=== PATIENT | male | born 1955 | race Caucasian/White ===

== ENCOUNTER 2020-11-13 08:44 | Outpatient (CLI) | payer BC ==
[~2020-11-13] VITALS: Ht 182.9 cm; Wt 114.5 kg
[2020-11-13 08:22] VITALS: BP 141/84
[2020-11-13] MEDS ORDERED: EPINEPHrine INJECTION 1 MG/ML AMP IM PRN (09:00)
[2020-11-13] MEDS ORDERED: BAMLANIVIMAB (NON FORM) 700 MG in NS (IVPB) 100 ML IV ONE (09:00)
[2020-11-13] MEDS ORDERED: diphenhydrAMINE 50 MG/ML INJ (BENADRYL) IV PRN (09:00)
[2020-11-13 10:00] VITALS: BP 132/73
== END 2020-11-13 10:05 | disposition home or self-care (01) ==
LOC: INFUSION 08:44
PROVIDERS: ATTEND Nurse Practitioner Family
DX: Z23 Encounter for immunization (principal); U07.1 COVID-19

== ENCOUNTER → 2021-03-05 | Outpatient (CLI) | payer OTHER | LOC: CARD 08:08 | PROVIDERS: ATTEND Internal Medicine Cardiovascular Disease | DX: R06.00 Dyspnea, unspecified (principal) | CPT/HCPCS: 93306 ==

== ENCOUNTER → 2021-04-09 | Outpatient (CLI) | payer BC, OTHER ==
[~2021-04-09] VITALS: Ht 182 cm; Wt 109.0 kg
[~2021-04-09] MED LIST: REGADENOSON 0.4 MG/5 ML SYR (LEXISCAN) IV ONE
[2021-04-09] MEDS: CATHETER FLUSH 10 ML SYR IV PRN ×2 (07:38→08:54)
[2021-04-09 08:50] VITALS: BP 178/94
--- NOTE | 2021-04-09 17:25 | STRESS TEST ---
DATE OF SERVICE: 04/09/2021 RESTING AND POST REGADENOSON TECHNETIUM-99M TETROFOSMIN SPECT CT IMAGING PRIMARY PHYSICIAN: Dr. Ponce. CLINICAL DIAGNOSIS: Shortness of breath. Baseline images were carried out after injection of 10.43 mCi of technetium-99m Tetrofosmin. This was followed by 0.4 mg Regadenoson and 29.7 mCi of technetium-99m Tetrofosmin for stress imaging. The electrocardiogram showed sinus rhythm at baseline. It did not change significantly with the Regadenoson infusion. The patient tolerated the procedure well. Review of images at rest and following stress does not indicate any distinct perfusion defects consistent with significant myocardial ischemia or infarction. Some degree of diaphragmatic attenuation is seen both at rest and following Regadenoson infusion. Gated images show normal global left ventricular systolic function with normal regional wall motion, including the diaphragmatic wall of the left ventricle. Left ventricular ejection fraction is calculated to be 64%. Left ventricular end-diastolic volume is 81 mL. TID is absent (1.07). CONCLUSIONS: 1. No evidence of any significant myocardial ischemia or infarction on this study. 2. Normal regional wall motion. 3. Normal global left ventricular systolic function with a calculated ejection fraction of 64%. Job ID: [id number] DocumentID: [id number] Dictated Date: 04/09/2021 15:04:51 Butter Wrapper Date: 04/09/2021 17:24:51 Dictated By: FRANKIE PONCE MD, MA, FACP, FACC,
== END ==
LOC: CARD 08:00
PROVIDERS: ATTEND Internal Medicine Cardiovascular Disease
DX: R06.02 Shortness of breath (principal)
CPT/HCPCS: 78452; 93017; A9502

== ENCOUNTER 2022-11-03 05:28 | Outpatient (CLI) | payer MEDICARE, OTHER ==
[~2022-11-03] VITALS: Ht 182.8 cm; Wt 109.3 kg
[2022-11-09] MEDS ORDERED: HYDR25TA4 PO (09:40)
[2022-11-09] MEDS ORDERED: ATEN100T PO (09:40)
[2022-11-09] MEDS ORDERED: LANS15CA PO (09:40)
[2022-11-09] MEDS ORDERED: TMSL.4C PO (09:40)
[2022-11-09] MEDS ORDERED: LISI40TA9 PO (09:40)
== END 2022-11-09 09:44 | disposition home or self-care (01) ==
LOC: PREOP 05:28
PROVIDERS: ATTEND Surgery
DX: Z01.818 Encounter for other preprocedural examination (principal)

== ENCOUNTER 2022-11-10 10:43 | Day surgery (SDC) | payer MEDICARE, OTHER ==
[~2022-11-10] VITALS: Ht 182.8 cm; Wt 109.3 kg
[2022-11-10] VITALS (10 sets, daily range): BP systolic 128–173; BP diastolic 70–88
[~2022-11-10 10:43] MED LIST changes: +ATEN100T PO; +HYDR25TA4 PO; +LANS15CA PO; +LISI40TA9 PO; -REGADENOSON 0.4 MG/5 ML SYR (LEXISCAN) IV ONE; +TMSL.4C PO
[2022-11-10] MEDS ORDERED: ceFAZolin INJECTION 2,000 MG in NS (IVPB) 50 ML IV ONE (11:00)
[2022-11-10] MEDS: LACTATED RINGERS 1,000 ML IV PRN ×2 (11:20→12:33)
[2022-11-10] MEDS ORDERED: BUP/EPI 0.5% 1:200,000 (SENSORCAINE) 30 ML VIAL ONE (11:27)
[2022-11-10] MEDS ORDERED: MIDAZOLAM 2 MG/2 ML (VERSED) VIAL ONE (12:04)
[2022-11-10] MEDS ORDERED: BUP/EPI 0.5% 1:200,000 (SENSORCAINE) 30 ML VIAL IJ ONE (12:24)
[2022-11-10] MEDS ORDERED: fentaNYL INJ 100 MCG/2 ML AMP ONE (12:25)
--- NOTE | 2022-11-10 12:51 | Discharge Inst-Simple/Standard ---
Discharge Inst-Standard Patient Instructions/Follow Up Plan of Care/Instructions/FU: 2 weeks [place] Activity as Tolerated: No Discharge Diet: Regular Diet Other Inst to Patient Follow up Appt: Make appointment for 2 week. Instructions: No strenuous activity. May shower in 24 hours, no tub bath or soaking. Use incentive spirometer at home as directed. No Smoking Skin/Wound Care: You have special glue over your incision that will fall off on it's own. Symptoms to Report: Appetite Changes, Extremity Discoloration, Numbness/Tingling, Swelling Increased, Bleeding Excessive, Eyesight Changes, Pain Increased, Urine Color Change, Constipation(Persistent), Fever over 101 degree F, Pain/Pressure in ches t, Urinating Difficulty, Cough Up/Vomit Blood, Heart Beat Irreg/Pounding, Pain/Pressure in jaw, Vaginal Bleeding Increase, Cramps in feet or legs, Lightheadedness, Pain/Pressure in shoulder, Diarrhea(Persistent), Memory Changes Suddenly, Questions/Concerns, Weight gain consecutive days, Dizziness/Fainting, Nausea/Vomiting, Shortness of Breath, Weight gain over 2 pounds If questions or concerns contact your physician Or seek help at emergency department. DOROTHEA VILLARREAL DO Nov 10, 2022 12:51
[2022-11-10] MEDS ORDERED: proPOfol 200 MG/20 ML (DIPRIVAN) VIAL IV ONE (12:52)
[2022-11-10] MEDS ORDERED: LIDOCAINE PF 2% 5 ML (XYLOCAINE) VIAL ONE (12:52)
[2022-11-10] MEDS ORDERED: SEVOFLURANE (ULTANE) 15 ML INHAL SOLN ONE (12:52)
[2022-11-10] MEDS ORDERED: ONDANSETRON 4 MG/2 ML (SDV) Z0FRAN ONE (12:53)
--- NOTE | 2022-11-10 12:55 | Progress Note-Post Operative ---
Post-Operative Progess Note Surgeon (s)/Facilities Engineering Manager (s) Surgeon DOROTHEA VILLARREAL DO Facilities Engineering Manager: na Pre-Operative Diagnosis MASS OF RIGHT NECK Post-Operative Diagnosis same Procedure & Operative Findings Date of Procedure 11/10/22 Procedure Performed/Findings excision of right neck mass 4x2.5cm Anesthesia Type general Estimated Blood Loss Estimated blood loss (mL): minimal Specimens/Packing Specimens Removed right neck mass (cyst) DOROTHEA VILLARREAL DO Nov 10, 2022 12:55
--- NOTE | 2022-11-10 13:07 | Anesthesia-General Post-Op ---
General Patient Condition Mental Status/LOC: Same as Preop Cardiovascular: Satisfactory Nausea/Vomiting: Absent Respiratory: Satisfactory Pain: Controlled Complications: Absent Post Op Complications Complications None Follow Up Care/Instructions Patient Instructions None needed. Anesthesia/Patient Condition Patient Condition Patient is doing well, no complaints, stable vital signs, no apparent adverse anesthesia problems. No complications reported per nursing. JING LESLIE CRNA Nov 10, 2022 13:07
[2022-11-10] MEDS ORDERED: ONDANSETRON 4 MG/2 ML (SDV) Z0FRAN IVP PRN (13:15)
[2022-11-10] MEDS ORDERED: fentaNYL INJ 100 MCG/2 ML AMP IVP ONE (13:15)
--- NOTE | 2022-11-11 16:38 | OPERATIVE REPORT ---
DATE OF SERVICE: 11/10/2022 PREOPERATIVE DIAGNOSIS: Right neck mass. POSTOPERATIVE DIAGNOSIS: Right neck mass. PROCEDURE: Excision of right neck mass, 4 x 2.5 cm. SURGEON: Dorothea Sharif DO ANESTHESIA: General. ESTIMATED BLOOD LOSS: Minimal. COMPLICATIONS: None. INDICATIONS: The patient is a 67-year-old male with a right neck mass. He understands risks and benefits of procedure and wishes to proceed. Consent was signed in chart. DESCRIPTION OF PROCEDURE: The patient was taken to the operating suite, prepped and draped in standard sterile fashion. Timeout was performed. Local anesthetic was infiltrated around the mass. A #15 blade scalpel was used to make a skin incision down through the skin and the subcutaneous tissues. The mass was encountered, it was cystic in nature. A hemostat was then used to begin dissecting around it. On the anterior surface small opening was created, which started draining cystic material. Continued to dissect around the overall mass until completely removed. The wound was then irrigated with copious amounts of irrigation. Hemostasis was achieved. Skin was then closed using 4-0 Monocryl in a running subcuticular fashion. Area was washed and dried and skin Affix was placed over the incision. The patient tolerated the procedure well without complications, taken to recovery in stable condition. Job ID: [id number] DocumentID: [id number] Dictated Date: 11/11/2022 10:14:20 Waste Water Treatment Plant Operator Date: 11/11/2022 16:37:00 Dictated By: DOROTHEA SHARIF DO
== END 2022-11-10 14:55 | disposition home or self-care (01) ==
LOC: SDC 10:43
PROVIDERS: ATTEND Surgery
DX: L72.0 Epidermal cyst (principal); E66.9 Obesity, unspecified; Z68.32 Body mass index [BMI] 32.0-32.9, adult; Z87.891 Personal history of nicotine dependence
CPT/HCPCS: 87081